=== PATIENT | female | born 1960 | race Caucasian/White ===

== ENCOUNTER → 2016-04-11 | Outpatient (CLI) | payer OTHER | LOC: COL.LAB 11:31 | DX: R19.7 Diarrhea, unspecified (principal) ==

== ENCOUNTER → 2016-06-19 | Outpatient (CLI) | payer OTHER | LOC: COL.RAD 14:15 | DX: R10.2 Pelvic and perineal pain (principal); R39.15 Urgency of urination ==

== ENCOUNTER → 2016-06-25 | Outpatient (CLI) | payer OTHER | LOC: COL.RAD 13:00 | DX: N28.1 Cyst of kidney, acquired (principal); Z90.49 Acquired absence of other specified parts of digestive tract | CPT/HCPCS: Q9967 ==

== ENCOUNTER → 2016-09-16 | Outpatient (CLI) | payer OTHER | LOC: COL.RAD 14:00 | DX: Z01.89 Encounter for other specified special examinations (principal); Z53.9 Procedure and treatment not carried out, unspecified reason ==

== ENCOUNTER 2016-09-17 15:00 | Outpatient (RCR) | payer OTHER | END 2016-10-28 07:59 | disposition still patient (30) | LOC: WSOH 15:00 | DX: M51.17 Intervertebral disc disorders with radiculopathy, lumbosacral region (principal); X50.0XXA Overexertion from strenuous movement or load, initial encounter; Y99.0 Civilian activity done for income or pay ==

== ENCOUNTER → 2016-09-30 | Outpatient (CLI) | payer OTHER | LOC: COL.RAD 07:16 | DX: M48.07 Spinal stenosis, lumbosacral region (principal); M51.16 Intervertebral disc disorders with radiculopathy, lumbar region; M47.27 Other spondylosis with radiculopathy, lumbosacral region; M46.87 Other specified inflammatory spondylopathies, lumbosacral region; M25.78 Osteophyte, vertebrae | CPT/HCPCS: A9585 ==

== ENCOUNTER → 2016-10-08 | Outpatient (CLI) | payer OTHER | LOC: MHCPAIN 14:58 | DX: G89.29 Other chronic pain (principal); M47.27 Other spondylosis with radiculopathy, lumbosacral region; M96.1 Postlaminectomy syndrome, not elsewhere classified | CPT/HCPCS: G0463 ==

== ENCOUNTER → 2016-11-03 | Outpatient (CLI) | payer OTHER | LOC: MHCPAIN 08:05 | DX: G89.29 Other chronic pain (principal); M47.27 Other spondylosis with radiculopathy, lumbosacral region; M53.3 Sacrococcygeal disorders, not elsewhere classified; M96.1 Postlaminectomy syndrome, not elsewhere classified | CPT/HCPCS: G0463 ==

== ENCOUNTER → 2016-11-14 | Outpatient (CLI) | payer BC | LOC: MHCPAIN 09:07 | DX: G89.29 Other chronic pain (principal); M47.27 Other spondylosis with radiculopathy, lumbosacral region; M53.3 Sacrococcygeal disorders, not elsewhere classified; M96.1 Postlaminectomy syndrome, not elsewhere classified | CPT/HCPCS: G0463 ==

== ENCOUNTER → 2016-11-20 | Outpatient (CLI) | payer BC | LOC: MHCPAIN 12:05 | DX: M53.3 Sacrococcygeal disorders, not elsewhere classified (principal) | CPT/HCPCS: G0260; J1040; Q9967 ==

== ENCOUNTER → 2016-11-28 | Outpatient (CLI) | payer BC | LOC: MHCPAIN 08:33 | DX: G89.29 Other chronic pain (principal); M47.27 Other spondylosis with radiculopathy, lumbosacral region; M53.3 Sacrococcygeal disorders, not elsewhere classified; M96.1 Postlaminectomy syndrome, not elsewhere classified | CPT/HCPCS: G0463 ==

== ENCOUNTER → 2016-12-17 | Outpatient (CLI) | payer BC | LOC: COL.RAD 10:30 | DX: E04.2 Nontoxic multinodular goiter (principal) ==

== ENCOUNTER → 2016-12-25 | Outpatient (CLI) | payer BC | LOC: COL.RAD 11:01 | DX: M25.552 Pain in left hip (principal) | CPT/HCPCS: J3301; Q9967 ==

== ENCOUNTER → 2017-01-23 | Outpatient (CLI) | payer BC | LOC: MHCPAIN 08:12 | DX: G89.29 Other chronic pain (principal); M47.27 Other spondylosis with radiculopathy, lumbosacral region; M53.3 Sacrococcygeal disorders, not elsewhere classified; M96.1 Postlaminectomy syndrome, not elsewhere classified | CPT/HCPCS: G0463 ==

== ENCOUNTER → 2017-01-29 | Outpatient (CLI) | payer BC | LOC: MHCPAIN 11:46 | DX: M47.27 Other spondylosis with radiculopathy, lumbosacral region (principal); M99.53 Intervertebral disc stenosis of neural canal of lumbar region | CPT/HCPCS: J1100; J2250; J3010; Q9967 ==

== ENCOUNTER → 2017-02-11 | Outpatient (CLI) | payer BC | LOC: MHCPAIN 11:52 | DX: G89.29 Other chronic pain (principal); M47.27 Other spondylosis with radiculopathy, lumbosacral region; M53.3 Sacrococcygeal disorders, not elsewhere classified; M96.1 Postlaminectomy syndrome, not elsewhere classified | CPT/HCPCS: G0463 ==

== ENCOUNTER → 2017-03-05 | Outpatient (CLI) | payer BC | LOC: MHCPAIN 08:36 | DX: M47.27 Other spondylosis with radiculopathy, lumbosacral region (principal); M51.17 Intervertebral disc disorders with radiculopathy, lumbosacral region; M99.53 Intervertebral disc stenosis of neural canal of lumbar region | CPT/HCPCS: J2250; J3010 ==

== ENCOUNTER → 2021-09-02 | Outpatient (CLI) | payer BC | LOC: MHCPAIN 10:01 | DX: M47.817 Spondylosis without myelopathy or radiculopathy, lumbosacral region (principal); M53.3 Sacrococcygeal disorders, not elsewhere classified; M54.16 Radiculopathy, lumbar region; M96.1 Postlaminectomy syndrome, not elsewhere classified | CPT/HCPCS: G0463 ==

== ENCOUNTER → 2021-09-09 | Outpatient (CLI) | payer BC | LOC: MHCPAIN 12:37 | DX: M47.817 Spondylosis without myelopathy or radiculopathy, lumbosacral region (principal); M54.17 Radiculopathy, lumbosacral region; M53.3 Sacrococcygeal disorders, not elsewhere classified | CPT/HCPCS: J1100; Q9967 ==

== ENCOUNTER → 2021-09-30 | Outpatient (CLI) | payer BC | LOC: MHCPAIN 15:33 | DX: M47.897 Other spondylosis, lumbosacral region (principal); M54.16 Radiculopathy, lumbar region; M96.1 Postlaminectomy syndrome, not elsewhere classified | CPT/HCPCS: G0463 ==

== ENCOUNTER 2021-12-03 16:30 | Outpatient (RCR) | payer BC | END 2021-12-09 | disposition home or self-care (01) | LOC: WSPT | DX: M54.17 Radiculopathy, lumbosacral region (principal) ==

== ENCOUNTER → 2021-12-03 | Outpatient (CLI) | payer BC | LOC: MHCPAIN 08:01 | DX: M47.817 Spondylosis without myelopathy or radiculopathy, lumbosacral region (principal); M53.3 Sacrococcygeal disorders, not elsewhere classified; M54.16 Radiculopathy, lumbar region; M96.1 Postlaminectomy syndrome, not elsewhere classified | CPT/HCPCS: G0463 ==

== ENCOUNTER 2023-01-30 05:29 | Day surgery (SDC) | payer BC ==
[~2023-01-30] VITALS: Ht 167.6 cm; Wt 71.2 kg
[~2023-01-30 05:29] MED LIST: Ondansetron 4 MG/2 ML VIAL IV PRN
[2023-01-30] MEDS ORDERED: ZOLOFT 25MG25 MG PO (06:43)
[2023-01-30] MEDS ORDERED: SYNTHROID0.125 MG/T PO (06:43)
[2023-01-30] MEDS ORDERED: AMBIEN 5MG TABLE5 MG PO (06:44)
[2023-01-30] MEDS ORDERED: ATIVAN 0.50.5 MG/TAB PO (06:44)
[2023-01-30] MEDS ORDERED: FLEXERIL 1010 MG/TAB PO (06:44)
[2023-01-30] MEDS ORDERED: VALTREX 50500 MG/TAB PO (06:45)
[2023-01-30] MEDS ORDERED: LR 1,000 ML IV SCH (07:00)
[2023-01-30 07:55] VITALS: BP 112/72; PULSE 80; TEMP 97.2
[2023-01-30 08:10] VITALS: BP 110/74; PULSE 77
[2023-01-30 08:12] VITALS: BP 124/83; PULSE 87; TEMP 97.5
[2023-01-30 08:25] VITALS: BP 130/84; PULSE 72
--- NOTE | 2023-01-30 08:50 | NUR ---
0755-PATIENT BROUGHT TO ENDO BAY 1 VIA CART, PT ALERT AND ORIENTED ON ARRIVAL. VITAL SIGNS TAKEN, VSS. PATIENT DENIES PAIN OR NAUSEA. REPORT OBTAINED FROM MIROSLAVA HILARIO. 0810-VSS. PATIENT TOLERATING PO INTAKE WITHOUT COMPLAINT. 0825-DR. SHAW AT BEDSIDE, DISCUSSED PROCEDURE FINDINGS. QUESTIONS INVITED. DISCHARGE PAPERWORK REVIEWED 0832-IV CATHETER DISCONTINUED, TIP INTACT. PRESSURE BANDAGE APPLIED. PATIENT DRESSED INDEPENDENTLY AND AMBULATED WITH STEADY GAIT. 0847-PATIENT DISCHARGED HOME TO [facility] VIA WHEELCHAIR, ACCOMPANIED BY DAUGHTER. ALL BELONGINGS AND DC PAPERWORK SENT WITH PT.
== END 2023-01-30 08:47 | disposition home or self-care (01) ==
LOC: SDCO 05:29
DX: Z12.11 Encounter for screening for malignant neoplasm of colon (principal); D12.2 Benign neoplasm of ascending colon; Z80.0 Family history of malignant neoplasm of digestive organs; J45.909 Unspecified asthma, uncomplicated
CPT/HCPCS: J2704; J7120